=== PATIENT | female | born 1950 | race Caucasian/White ===

== ENCOUNTER 2020-04-07 15:26 | Emergency (ER) | payer MEDICARE, OTHER ==
[~2020-04-07] VITALS: Ht 147.3 cm; Wt 74.3 kg
[2020-04-07 15:35] VITALS: BP 201/82
[2020-04-07] MEDS ORDERED: METH4TAB PO (16:16)
[2020-04-07] MEDS ORDERED: DICL100G18 TP (16:16)
--- NOTE | 2020-04-07 16:16 | ED Lower Extremity ---
General Chief Complaint: Lower Extremity Stated Complaint: BI LATERAL KNEE PAIN Nursing Triage Note: Pt c/o chronic bilateral knee pain that has persisted for over eight years. Pt reports eight years ago, having a steroid shot and a knee brace that "cured" the pain. Pt reports calling Carolyn today and was told to come to ED. Pt reports pain is affecting ADL. Nursing Sepsis Screen: No Definite Risk Source: patient History of Present Illness Date Seen by Provider: Apr 07, 2020 Time Seen by Provider: 16:00 Initial Comments PT ARRIVES VIA POV FROM HOME C/O CHRONIC BILATERAL KNEE PAIN FOR MANY YEARS--GREATER THAN 8 YEARS FOR THE LAST WEEK, PAIN IN LEFT KNEE HAS BEEN WORSE STATES IT MAKES ME UNSTEADY ON MY FEET--HAS A WALKER AT HOME, BUT IS NOT USING IT "BECAUSE I'VE BEEN WALKING FINE" PER PT NO SWELLING NO INJURY NO FEVER STATES SHE TOOK 1/2 HYDROCODONE TODAY AND 2 ADVIL, OTHERWISE HAS NOT TAKEN ANYTHING ELSE FOR PAIN 8 YEARS AGO, SHE GOT A "CORTISONE SHOT" AND A "KNEE BRACE" 8 YEARS AGO THAT "CURED IT" STATES SHE HAS HAD TELEPHONE VISITS WITH CODER ARIELLA QUICK 2-3 DAYS AGO, YESTERDAY AND WAS TOLD TO TAKE OTC ARTHRITIS PILL STATES SHE CALLED TODAY AND SPOKE WITH CAROLYN, WHO TOLD HER TO COME HERE. PT HAS ANOTHER TELEPHONE APPOINTMENT THIS TUESDAY AT 0900 FOR THIS PROBLEM PCP: DR. FU Allergies and Home Medications Allergies Coded Allergies: No Known Drug Allergies (Unverified , 04/07/20) Home Medications Diclofenac Sodium 100 Gm Gel..gram., 100 GM TP TID Prescribed by: AARNO MACK on 04/07/20 161 Methylprednisolone 4 Mg Tab.ds.pk, 4 MG PO UD PER DOSE PACK INSTRUCTIONS Prescribed by: AARON MACK on 04/07/20 1616 Patient Home Medication List Home Medication List Reviewed: Yes Review of Systems Constitutional: no symptoms reported Musculoskeletal: see HPI Skin: no symptoms reported Psychiatric/Neurological: No Symptoms Reported Past Fnkqqln-Ilteyx-Cyuyas Hx Past Med/Social Hx: Reviewed and Corrections made Patient Social History Alcohol Use: Denies Use Recreational Drug Use: No Smoking Status: Never a Smoker 2nd Hand Smoke Exposure: No Recent Foreign Travel: No Contact w/Someone Who Travel: No Recent Infectious Disease Expo: No Recent Hopitalizations: No Past Medical History Surgeries: Yes Hysterectomy Respiratory: No 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" ) High Cholesterol, Hypertension, Palpitations 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 oz. kg; 34.00 BMI Method: General Appearance: WD/WN, no apparent distress Hips: bilateral hip non-tender Legs: bilateral leg non-tender Knees: right knee non-tender; left knee bone tenderness (INFERIOR ASPECT OF KNEE, BELOW PATELLA. NO SWELLING. NO GROSS LIGAMENT LAXITY. ) Ankles: bilateral ankle normal inspection Feet: bilateral foot normal inspection Neurologic/Tendon: normal sensation, normal motor functions, normal tendon functions Neurologic/Psychiatric: no motor/sensory deficits, alert, oriented x 3, other (HEAD TREMOR) Skin: normal color, warm/dry Procedures/Interventions Splinting and Joint Reduction : Driss wrap: Yes Progress/Results/Core Measures Results/Orders My Orders Orders - AARON MACK DO Driss Bandage (04/07/20 16:13) Vital Signs/I&O 04/07/20 15:35 Temp 36.8 Pulse 69 Resp 22 B/P (MAP) 201/82 (121) Pulse Ox 93 O2 Delivery Room Air Blood Pressure Mean: 121 Departure Impression Primary Impression: Chronic pain of left knee Disposition: HOME, SELF-CARE Condition: Stable Departure-Patient Inst. Referrals: MIKIE FU MD Patient Instructions: Chronic Knee Pain (DC) Add. Discharge Instructions: DRISS WRAP NEEDED FOR COMFORT ALTERNATE ICE AND HEAT TO AREA AT 20 MINUTE INTERVALS USE YOUR WALKER FOR STABILITY FOLLOW UP WITH DR. FU'S OFFICE ON TUESDAY SCHEDULED. All discharge instructions reviewed with patient and/or family. Voiced understanding. Scripts Diclofenac Sodium (Voltaren) 100 Gm Gel..gram. 100 GM TP TID, #1 TUBE Prov: AARON MACK DO 04/07/20 Methylprednisolone (Medrol) 4 Mg Tab.ds.pk 4 MG PO UD for 6 Days, #21 PKG PER DOSE PACK INSTRUCTIONS Prov: AARON MACK DO 04/07/20 AARON MACK DO Apr 07, 2020 16:16
--- OUTSIDE RECORDS SUMMARY | 2020-04-07 18:48 | XMS REPORT | Continuity of Care Document ---
Author Organization Unknown Address Unknown Phone Unavailable Allergies Active Description Code Type Severity Reaction Onset Reported/Identified Relationship to Patient Clinical Status Yes No Known Drug Allergies [id number] Drug Allergy Unknown N/A 04/07/2020 Medications There is no data. Problems There is no data. Procedures There is no data. Results There is no data. Encounters ACCT No. Visit Date/Time Discharge Status Pt. Type Provider Facility Loc./Unit Complaint [id number] 04/07/2020 15:29:00 020 16:26:00 DIS Emergency AARON MACK DO [facility] BI LATERAL KNEE PAIN
== END 2020-04-07 16:26 | disposition home or self-care (01) ==
LOC: EDUNIT# 15:26 → ER 15:29
DX: G89.29 Other chronic pain (principal); M25.562 Pain in left knee; M25.561 Pain in right knee; Z85.41 Personal history of malignant neoplasm of cervix uteri; Z79.1 Long term (current) use of non-steroidal anti-inflammatories (NSAID)
CPT/HCPCS: 99283

== ENCOUNTER → 2021-01-02 | Outpatient (CLI) | payer MEDICARE, OTHER ==
[~2021-01-02] MED LIST: DICL100G18 TP; METH4TAB PO
== END ==
LOC: RAD 10:34
PROVIDERS: ATTEND Physician Assistant
DX: Z12.31 Encounter for screening mammogram for malignant neoplasm of breast (principal)
CPT/HCPCS: 77063; 77067

== ENCOUNTER 2021-03-21 20:53 | Emergency (ER) | payer MEDICARE, OTHER ==
[~2021-03-21] VITALS: Ht 147 cm; Wt 77.0 kg
[2021-03-21] MEDS ORDERED: KETOROLAC 60 MG/2 ML VIAL IM ONE (21:15)
[2021-03-21] MEDS ORDERED: predniSONE 20 MG TAB PO ONE (21:15)
--- NOTE | 2021-03-21 21:18 | ED Lower Extremity ---
General Stated Complaint: R KNEE PAIN/SWOLLEN Source: patient Exam Limitations: no limitations History of Present Illness Date Seen by Provider: Mar 21, 2021 Time Seen by Provider: 21:16 Initial Comments Right knee pain. She is on meloxicam normally but has been out of it for a month. She took a half a hydrocodone today without relief. No fevers chills or injury to the right knee. She states that typically when this happens a course of steroids helps. Onset: last week Severity: moderate Pain/Injury Location: right knee Method of Injury: fell Modifying Factors: Worse With Movement Allergies and Home Medications Allergies Coded Allergies: No Known Drug Allergies (Unverified , 04/07/20) Home Medications Diclofenac Sodium 100 Gm Gel..gram., 100 GM TP TID Prescribed by: AARON MACK on 04/07/20 161 Methylprednisolone 4 Mg Tab.ds.pk, 4 MG PO UD PER DOSE PACK INSTRUCTIONS Prescribed by: AARON MACK on 04/07/20 1616 Patient Home Medication List Home Medication List Reviewed: Yes Review of Systems Constitutional: see HPI EENTM: see HPI Respiratory: no symptoms reported Cardiovascular: no symptoms reported Genitourinary: no symptoms reported Musculoskeletal: no symptoms reported Skin: no symptoms reported Psychiatric/Neurological: No Symptoms Reported Past Tvgetfx-Xzebbp-Gfjkag Hx Past Medical History Surgeries: Yes Hysterectomy Respiratory: No 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" ) High Cholesterol, Hypertension, Palpitations Neurological: 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 oz. kg; 34.00 BMI Method: General Appearance: WD/WN, no apparent distress Neck: non-tender, full range of motion Respiratory: no respiratory distress, no accessory muscle use Hips: bilateral hip non-tender, bilateral hip normal inspection, bilateral hip normal range of motion Legs: bilateral leg non-tender, bilateral leg normal inspection, bilateral leg normal range of motion Knees: right knee pain, right knee soft tissue tenderness, right knee other (No erythema or ecchymosis. No palpable effusion) Ankles: bilateral ankle non-tender, bilateral ankle normal inspection, bilateral ankle normal range of motion Feet: bilateral foot non-tender, bilateral foot normal inspection, bilateral foot no evidence of injury Neurologic/Psychiatric: alert, normal mood/affect, oriented x 3 Skin: normal color, warm/dry Progress/Results/Core Measures Results/Orders My Orders Orders - RUBEN FARIAS APRN Ketorolac Injection (Toradol Injection) (03/21/21 21:15) Prednisone Tablet (Deltasone Tablet) (03/21/21 21:15) Vital Signs/I&O 03/21/21 21:12 Temp 36.6 Pulse 67 Resp 18 B/P (MAP) 187/84 (118) Pulse Ox 94 O2 Delivery Room Air Departure Impression Primary Impression: Right knee pain Disposition: 01 HOME, SELF-CARE Condition: Stable Departure-Patient Inst. Decision time for Depature: 21:18 Referrals: NO,LOCAL PHYSICIAN (PCP) Primary Care Physician CAROLYN REIS (Family) Primary Care Physician Patient Instructions: Knee Pain Add. Discharge Instructions: 1. [facility] is open from 10 AM to 6 PM tomorrow. [facility] I sent your prescription to [facility] right across the street from the hospital. Scripts Methylprednisolone (Methylprednisolone Dose Pack) 4 Mg Tab.ds.pk 4 MG PO UD for 6 Days, #21 PKG PER DOSE PACK INSTRUCTIONS Prov: RUBEN FARIAS APRN 03/21/21 RUBEN FARIAS APRN Mar 21, 2021 21:18
[2021-03-21] MEDS ORDERED: METH4TAB10 PO (21:23)
[2021-03-21 21:33] VITALS: BP 187/84
== END 2021-03-21 21:33 | disposition home or self-care (01) ==
LOC: EDUNIT# 20:53 → ER 20:55
DX: M25.561 Pain in right knee (principal); I10 Essential (primary) hypertension; Z79.52 Long term (current) use of systemic steroids
CPT/HCPCS: 99284

== ENCOUNTER → 2021-04-09 | Outpatient (CLI) | payer MEDICARE, OTHER ==
[~2021-04-09] MED LIST changes: +METH4TAB10 PO
[2021-04-09 12:30] LABS: HEMATOCRIT 47 % (35-52); MEAN CORPUSCULAR HEMOGLOBIN 28 pg (25-34); MEAN CORPUSCULAR HGB CONC 32 g/dL (32-36); MEAN CORPUSCULAR VOLUME 87 fL (80-99); MEAN PLATELET VOLUME 8.8 fL (9.0-12.2); PLATELET COUNT 185 10^3/uL (130-400); WHITE BLOOD COUNT 6.4 10^3/uL (4.3-11.0)
[2021-04-09 12:38] LABS: ALBUMIN 4.1 GM/DL (3.2-4.5)
[2021-04-09 12:39] LABS: POTASSIUM 3.7 MMOL/L (3.6-5.0)
[2021-04-09 12:40] LABS: CALCIUM 10.1 MG/DL (8.5-10.1)
[2021-04-09 12:41] LABS: TOTAL PROTEIN 7.6 GM/DL (6.4-8.2)
[2021-04-09 12:43] LABS: BILIRUBIN,TOTAL 0.8 MG/DL (0.1-1.0)
[2021-04-09 12:45] LABS: CREATININE SERUM 0.75 MG/DL (0.60-1.30)
[2021-04-09 12:48] LABS: URIC ACID 6.1 MG/DL (2.6-7.2)
--- NOTE | 2021-04-09 13:19 | Diagnostic Imaging Report ---
INDICATION: Chronic bilateral knee pain. FINDINGS: This patient has very severe bilateral tricompartmental osteoarthritis of the knees while significant bilaterally is greater right than left. Lateral view showed no convincing evidence for joint effusion. There is meniscal calcifications bilaterally joint space narrowing, bulky osteophytes, subchondral sclerosis and cyst formation. 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
== END ==
LOC: RAD 12:05
PROVIDERS: ATTEND Physician Assistant
DX: M17.11 Unilateral primary osteoarthritis, right knee (principal); M17.12 Unilateral primary osteoarthritis, left knee; I10 Essential (primary) hypertension
CPT/HCPCS: 36415; 80053; 84550; 85027; 86060

== ENCOUNTER → 2022-01-22 | Outpatient (CLI) | payer MEDICARE, OTHER ==
[~2022-01-22] VITALS: Ht 149.9 cm; Wt 74.5 kg
[~2022-01-22] MED LIST changes: +LIDOCAINE 1% INJ 20 ML VIAL INJ ONE
--- NOTE | 2022-01-22 16:24 | Diagnostic Imaging Report ---
INDICATION: Right breast nodule. Patient presents for ultrasound-guided biopsy. PROCEDURE: Patient was brought to the sonographic suite and placed on table in the supine position. Ultrasound imaging of the right breast was performed to evaluate appropriate entry site. Right breast was prepped and draped in the usual sterile fashion. A small amount of 1% lidocaine was utilized for local anesthesia. The 3 mm circumscribed hypoechoic nodule at the 5:00 location of right breast was visualized. The 13-gauge hand-held vacuum assisted mammotome device was advanced in place just deep to the lesion centered within the biopsy chamber. Two core biopsies were obtained. There was complete removal of the lesion. A marker clip was then deployed. Hemostasis was obtained using manual compression. Patient tolerated the procedure well and left the department in stable condition. IMPRESSION: Successful ultrasound-guided hand-held mammotome biopsy of the 3 mm lesion at the 5:00 location of right breast. Pathology results are currently pending. Dictated by: Dictated on workstation # [id number]
--- NOTE | 2022-01-22 16:28 | Diagnostic Imaging Report ---
INDICATION: Left breast mass. Patient presents for ultrasound-guided biopsy. PROCEDURE: Patient was brought to the ultrasound suite and placed on table in the supine position. Ultrasound imaging of left breast was performed to evaluate appropriate entry site. Left breast was prepped and draped in the usual sterile fashion. A small amount of 1% lidocaine was utilized for local anesthesia. A total of three passes were made into the spiculated solid mass 5:00 location of left breast utilizing a 14-gauge achieve needle. A marker clip was then deployed. Hemostasis was obtained using manual compression. IMPRESSION: Successful ultrasound-guided core biopsy of the solid mass 5:00 location left breast. Pathology results are currently pending. Dictated on workstation # [id number]
--- NOTE | 2022-01-22 16:29 | Diagnostic Imaging Report ---
INDICATION: Enlarged left axillary lymph node. PROCEDURE: Patient was brought to the sonographic suite and placed on table in the supine position. Ultrasound imaging of the left axilla was performed to evaluate appropriate entry site. Left axilla was prepped and draped in the usual sterile fashion. A small amount of 1% lidocaine was utilized for local anesthesia. A total of three passes were made into an enlarged left axillary lymph node utilizing a 14-gauge achieve needle. Lymph node is primarily fatty replaced and has a thin mantle. Marker clip was then deployed. Hemostasis was obtained using manual compression. Patient tolerated the procedure well. IMPRESSION: Successful ultrasound-guided core biopsy of the dominant left axillary lymph node. Dictated on workstation # [id number]
== END ==
LOC: RAD 13:51
PROVIDERS: ATTEND Nurse Practitioner Family
DX: N63.23 Unspecified lump in the left breast, lower outer quadrant (principal); N63.13 Unspecified lump in the right breast, lower outer quadrant
CPT/HCPCS: 19083 ×2; 76942; 77066; A4648; G0279; 77062

== ENCOUNTER 2022-02-02 15:49 | Outpatient (RCR) | payer MEDICARE, OTHER ==
[~2022-02-02 15:49] MED LIST changes: -LIDOCAINE 1% INJ 20 ML VIAL INJ ONE
== END 2022-02-16 | disposition home or self-care (01) ==
LOC: ONC 15:49
PROVIDERS: ATTEND Internal Medicine Hematology & Oncology
DX: C50.912 Malignant neoplasm of unspecified site of left female breast (principal)
CPT/HCPCS: 99214

== ENCOUNTER 2022-03-03 05:29 | Outpatient (CLI) | payer MEDICARE, OTHER ==
[~2022-03-03] VITALS: Ht 148 cm; Wt 75.0 kg
[2022-03-05] MEDS ORDERED: CHOL20003 PO (11:24)
[2022-03-05] MEDS ORDERED: AMLO5TAB4 PO (11:24)
[2022-03-05] MEDS ORDERED: MELO10CA3 PO (11:24)
[2022-03-05] MEDS ORDERED: ASCO250T55 PO (11:24)
[2022-03-05] MEDS ORDERED: VITA1CAP PO (11:24)
[2022-03-05] MEDS ORDERED: PRAV40TA2 PO (11:24)
[2022-03-05] MEDS ORDERED: HYDR12.56 PO (11:24)
[2022-03-05] MEDS ORDERED: CARV3.12 PO (11:24)
[2022-03-05] MEDS ORDERED: DONE10TA41 PO (11:24)
[2022-03-05] MEDS ORDERED: PRIM50TA33 PO (11:24)
[2022-03-05] MEDS ORDERED: ALPR0.25 PO (11:24)
[2022-03-05] MEDS ORDERED: OMEG-82 PO (11:24)
== END 2022-03-05 12:34 | disposition home or self-care (01) ==
LOC: PREOP 05:29
PROVIDERS: ATTEND Surgery
DX: Z01.818 Encounter for other preprocedural examination (principal)

== ENCOUNTER 2022-03-10 06:13 | Day surgery (SDC) | payer MEDICARE, OTHER ==
[2022-03-10] VITALS (10 sets, daily range): BP systolic 153–197; BP diastolic 71–95
[~2022-03-10] VITALS: Ht 148 cm; Wt 75.0 kg
[~2022-03-10 06:13] MED LIST changes: +ALPR0.25 PO; +AMLO5TAB4 PO; +ASCO250T55 PO; +CARV3.12 PO; +CHOL20003 PO; +DONE10TA41 PO; +HYDR12.56 PO; +MELO10CA3 PO; +OMEG-82 PO; +PRAV40TA2 PO; +PRIM50TA33 PO; +VITA1CAP PO
[2022-03-10] MEDS ORDERED: ceFAZolin 2 GM IV Premixed 50 ML IV ONE (06:15)
[2022-03-10] MEDS: LACTATED RINGERS 1,000 ML IV PRN ×2 (06:25→12:00)
[2022-03-10] MEDS ORDERED: LIDOCAINE 1% INJ 20 ML VIAL INJ ONE (08:15)
--- NOTE | 2022-03-10 08:16 | Progress Note-Pre Operative ---
Pre-Operative Progress Note H&P Reviewed The H&P was reviewed, patient examined and no changes noted. Time Seen by Provider: 08:10 Date H&P Reviewed: Mar 10, 2022 Time H&P Reviewed: 08:10 Pre-Operative Diagnosis: left breast cancer, site marked MARCK SALINAS DO Mar 10, 2022 08:16
--- NOTE | 2022-03-10 10:13 | Diagnostic Imaging Report ---
INDICATION: Left breast carcinoma. Patient presents for ultrasound-guided hookwire localization. DETAILS OF THE PROCEDURE: The patient was brought to the ultrasound room and placed on the bed in the supine position. Ultrasound imaging of the left breast was performed to evaluate for an appropriate entry site. The left breast was then prepped and draped in the usual sterile fashion. A small amount of 1% lidocaine was utilized for local anesthesia. A localization needle was advanced through the solid hypoechoic mass at the 5 o'clock location in the left breast 5 cm from the nipple. The hookwire was then deployed and the needle was removed. The hookwire was affixed to the patient's skin. The patient tolerated the procedure well and was sent for a post procedure mammogram in satisfactory condition. IMPRESSION: Successful ultrasound-guided hookwire localization of the solid mass in the left breast at the 5 o'clock location. Dictated by: Dictated on workstation # [id number]
[2022-03-10] MEDS ORDERED: LIDOCAINE/EPI 2% 1:200,00 (XYLOCAINE) 20 ML VIAL ONE (10:41)
[2022-03-10] MEDS ORDERED: METHYLENE BLUE 0.5% (PROVAYBLUE) 50 mg/10 ml vial IV ONE (10:41)
--- NOTE | 2022-03-10 11:02 | Diagnostic Imaging Report ---
INDICATION: Left breast carcinoma. FINDINGS: Unilateral left 2D CC and ML mammography was performed after the patient underwent ultrasound guided hookwire localization. Images demonstrate the hookwire entering from a lateral approach and extending through the irregular mass in the lower outer left breast. IMPRESSION: Localization of the large irregular mass in the lower outer left breast, as described. Dictated by: Dictated on workstation # [id number]
--- NOTE | 2022-03-10 11:23 | Diagnostic Imaging Report ---
INDICATION: Left breast carcinoma. A total of 1.05 mCi of filtered technetium-99m sulfur colloid was injected in four separate aliquots in a periareolar distribution of the left breast. Imaging was performed for 2 hours. The images demonstrate the activity at the injection site in a periareolar region. There was migration of activity into the axilla consistent with sentinel nodes. This was marked on the patient's skin. IMPRESSION: Left breast lymphoscintigraphy, as described. Dictated by: Dictated on workstation # [id number]
[2022-03-10] MEDS ORDERED: LIDOCAINE PF 2% 5 ML (XYLOCAINE) VIAL ONE (11:25)
[2022-03-10] MEDS ORDERED: proPOfol 200 MG/20 ML (DIPRIVAN) VIAL IV ONE (11:25)
[2022-03-10] MEDS ORDERED: ONDANSETRON 4 MG/2 ML (SDV) Z0FRAN ONE (11:25)
[2022-03-10] MEDS ORDERED: fentaNYL INJ 100 MCG/2 ML AMP ONE (11:25)
--- NOTE | 2022-03-10 12:25 | Progress Note-Post Operative ---
Post-Operative Progess Note Surgeon (s)/Auto Bumper Straightener (s) Surgeon MARCK SALINAS DO Auto Bumper Straightener: Yang Pre-Operative Diagnosis left breast cancer, site marked Post-Operative Diagnosis same pending path Procedure & Operative Findings Date of Procedure 03/10/22 Procedure Performed/Findings 1) Left partial mastectomy 2) SLN bx 3) injection methylene blue Anesthesia Type LMA Estimated Blood Loss Estimated blood loss (mL): less than 30ml Specimens/Packing Specimens Removed left partial mastectomy SLN x 3 palpable node MARCK SALINAS DO Mar 10, 2022 12:25
[2022-03-10] MEDS ORDERED: TRM50T PO (12:27)
--- NOTE | 2022-03-10 12:29 | Discharge Inst-Surgical ---
Discharge Inst-Surgical Depart Medication/Instructions New, Converted or Re-Newed RX: Transmitted to Pharmacy Patient Instructions Follow up Appt: Make appointment for 1 week. [phone] Instructions: No lifting greater than 20 pounds. No strenuous activity. May shower in 24 hours, no tub bath or soaking. Use incentive spirometer at home as directed. No Smoking Skin/Wound Care: May remove bandages in am. You need to leave the Dermabond on incision it will fall off on it's own. Symptoms to Report: Appetite Changes, Extremity Discoloration, Numbness/Tingling, Swelling Increased, Bleeding Excessive, Eyesight Changes, Pain Increased, Urine Color Change, Constipation(Persistent), Fever over 101 degree F, Pain/Pressure in chest, Urinating Difficulty, Cough Up/Vomit Blood, Heart Beat Irreg/Pounding, Pain/Pressure in jaw, Cramps in feet or legs, Lightheadedness, Pain/Pressure in shoulder, Diarrhea(Persistent), Memory Changes Suddenly, Questions/Concerns, Weight gain consecutive days, Dizziness/Fainting, Nausea/Vomiting, Shortness of Breath, Weight gain over 2 pounds If questions or concerns contact your physician Or seek help at emergency department. Activity Activity as Tolerated: Yes Activity Instructions: Avoid Stress to Incision Driving Instructions: No Driving/Refer to Dr. Love Discharge Diet: No Restrictions Diet After 24 Hours: Clear Liquid if Nauseous If Any Problems/Questions/Issu: Contact Your Physician, Go to Emergency Room Skin/Wound Care Infection Signs and Symptoms: Increased Redness, Foul Odor of Wound, Increased Drainage, Skin Itchy or Has a Rash, Increased Swelling, Temperature Above 101 F Wound Care Comment: wear sports bra/tight fitting bra for next week, 24 hours per day except to shower Bathing Instructions: Shower Stitches/Luiz/Dermabond Dis: Dermabond Ice Pack: Ice On and Off Site MARCK SALINAS DO Mar 10, 2022 12:29
[2022-03-10] MEDS ORDERED: SEVOFLURANE (ULTANE) 15 ML INHAL SOLN ONE (12:30)
--- NOTE | 2022-03-10 12:44 | Anesthesia-General Post-Op ---
General Patient Condition Mental Status/LOC: Same as Preop Cardiovascular: Satisfactory Nausea/Vomiting: Absent Respiratory: Satisfactory Pain: Controlled Complications: Absent Post Op Complications Complications None Follow Up Care/Instructions Patient Instructions None needed. Anesthesia/Patient Condition Patient Condition Patient is doing well, no complaints, stable vital signs, no apparent adverse anesthesia problems. No complications reported per nursing. PETRA EL CRNA Mar 10, 2022 12:44
[2022-03-10] MEDS ORDERED: fentaNYL INJ 100 MCG/2 ML AMP IVP ONE (12:45)
[2022-03-10] MEDS ORDERED: ONDANSETRON 4 MG/2 ML (SDV) Z0FRAN IVP PRN (12:45)
[2022-03-10] MEDS ORDERED: morphine INJ 10 MG/ML 1ML (SYR OR VIAL) IVP ONE (12:45)
--- NOTE | 2022-03-10 12:51 | Diagnostic Imaging Report ---
INDICATION: Left breast carcinoma, status post lumpectomy. FINDINGS: A specimen radiograph was submitted. The mass as well as the marker clip and hookwire are located within the specimen. IMPRESSION: Specimen radiograph, as described. Dictated by: Dictated on workstation # [id number]
--- NOTE | 2022-03-11 06:26 | OPERATIVE REPORT ---
DATE OF SERVICE: 03/10/2022 PREOPERATIVE DIAGNOSIS: Left breast cancer. POSTOPERATIVE DIAGNOSIS: Left breast cancer, pending pathology. PROCEDURES: 1. Left partial mastectomy. 2. Zoar lymph node biopsy. 3. Injection of methylene blue. SURGEON: Rishi Shah DO HOGSHEAD HEAD MATCHER: Tai Soria DO. ANESTHESIA: LMA. BLOOD LOSS: Less than 20 mL. FLUIDS: Per anesthesia. POSTOPERATIVE CONDITION: Stable. INDICATION FOR PROCEDURE: The patient is a 71-year-old female, who had a breast mass, it was biopsied and came back as invasive ductal carcinoma. She needed a mastectomy with sentinel node. FINDINGS: The patient had a left breast mass. Her left breast cancer localized with needle localization, sentinel lymph node performed and methylene blue injected. The specimen was x-rayed and the mass was in the specimen, 3 blue lymph node was obtained and one palpable node. PROCEDURE NOTE: After informed consent was obtained, the patient was first sent to radiology where she had injection of radioactive dye for lymphoscintigraphy. She also had an ultrasound performed to localize the mass because she had a large area of inflammation from the biopsy. She was then brought to the operating room, timeout was performed. Site had been marked preoperatively, everyone agreed on including the patient. Then, used a methylene blue to inject around the mass just below the areola at about 5 o'clock and then on the areolar at 3 and 6 o'clock, then massaged this area for 5 minutes. The patient was then sterilely prepped and draped in normal fashion. Local lidocaine was used to infiltrate along the radial line right around the 5 o'clock position, almost at the 6 o'clock position, infiltrated the skin with local, then made an incision with a 15 blade, carried down through skin and subcutaneous tissue, deepened down to subcutaneous tissue with Bovie electrocautery, then created flaps in the medial and lateral direction, able to bring the guidewire into the incision and then started dissecting around this mass with Bovie electrocautery, going around it, getting good margins, removed it en bloc with a short suture at the 12 o'clock position, long suture laterally, the 3 o'clock position and then 2 sutures on the base of this incision. Copiously irrigated with normal saline. Hemostasis was obtained and then closed the incision closing the subcutaneous and subcuticular tissue with 3-0 Vicryl 5 interrupted sutures. Area was cleaned and dried, held off and then did use a secondary set clean and sterile to start doing the sentinel lymph node biopsy. We had done the Jaspreet counter, the Neoprobe on the skin prior to surgery was 140, it was up in the left axilla, made incision after infiltrating the skin with local with incision made #15 blade, carried down through skin and subcutaneous tissue, then deepened down to subcutaneous tissue with Bovie electrocautery. Then, helping to direct the dissection with the Neoprobe, we found the first lymph node. It was at 262 count in vivo and 205 ex vivo, this was removed and sent to pathology. Then, using Neoprobe found another one, it was 277 in vivo and 429 ex vivo, continued found a third one, it was 164 in vivo and 327 ex vivo and then found a fourth what felt like a palpable node could have just been some fat, it was neither blue nor hot; however, this was removed. Copiously irrigated with normal saline and then closed this incision with 4-0 undyed Monocryl, 3 interrupted subcuticular stitches. Area was cleaned and dried, dressings placed. She had a tight dressing placed across the breast to try and prevent seroma formation. Sponge, instrument and needle count was correct at the end of the case. She was transferred to recovery room in stable condition. Dr. Soria assisted on this helping to hold anatomy, identify anatomy and close incisions. Job ID: [id number] DocumentID: [id number] Dictated Date: 03/10/2022 18:21:40 Wheel Alignment Technician Date: 03/11/2022 04:56:33 Dictated By: DO BAIRON ORTEGA
== END 2022-03-10 14:23 | disposition home or self-care (01) ==
LOC: CARD 06:13
PROVIDERS: ATTEND Surgery
DX: C50.012 Malignant neoplasm of nipple and areola, left female breast (principal)
CPT/HCPCS: 19285; 19301; 38525; 76098; 77065; 78195; 87081; A4648; A9541; G0279

== ENCOUNTER 2022-03-23 13:21 | Outpatient (RCR) | payer MEDICARE, OTHER ==
[~2022-03-23 13:21] MED LIST changes: +TRM50T PO
== END 2022-04-09 09:57 | disposition home or self-care (01) ==
LOC: ONC 13:21
PROVIDERS: ATTEND Internal Medicine Hematology & Oncology
DX: C50.912 Malignant neoplasm of unspecified site of left female breast (principal); I10 Essential (primary) hypertension; E78.5 Hyperlipidemia, unspecified; E66.9 Obesity, unspecified; E11.9 Type 2 diabetes mellitus without complications; F41.9 Anxiety disorder, unspecified
CPT/HCPCS: 99213

== ENCOUNTER 2022-05-04 15:42 | Outpatient (RCR) | payer MEDICARE, OTHER ==
[~2022-05-04] VITALS: Ht 148.6 cm; Wt 75.3 kg
[2022-05-05] MEDS ORDERED: NS IV SCH (09:45)
[2022-05-05] MEDS ORDERED: CYCLOPHOSPHAMIDE IV SCH (09:45)
[2022-05-05] MEDS ORDERED: PALONOSETRON HCL 0.25 MG, dexAMETHasone INJECTION 10 MG in NS (IVPB) 50 ML IV SCH (09:45)
[2022-05-05] MEDS ORDERED: HEParin (CENTRAL IV FLUSH) 500 UNIT/5 ML SYR IV PRN (09:45)
[2022-05-05] MEDS ORDERED: NS IV 1000 ML (CANCER CTR) IV SCH (09:45)
[2022-05-05] MEDS ORDERED: METHOTREXATE IJ SCH (10:00)
== END 2022-05-19 | disposition home or self-care (01) ==
LOC: ONC 15:42
PROVIDERS: ATTEND Internal Medicine Hematology & Oncology
DX: C50.912 Malignant neoplasm of unspecified site of left female breast (principal); I10 Essential (primary) hypertension; E78.5 Hyperlipidemia, unspecified; E11.9 Type 2 diabetes mellitus without complications; E66.9 Obesity, unspecified
CPT/HCPCS: 99213

== ENCOUNTER 2022-05-17 05:30 | Outpatient (CLI) | payer MEDICARE, OTHER ==
[~2022-05-17] VITALS: Ht 149.9 cm; Wt 76.7 kg
== END 2022-05-18 12:37 ==
LOC: PREOP 05:30
PROVIDERS: ATTEND Surgery
DX: Z01.818 Encounter for other preprocedural examination (principal); Z45.2 Encounter for adjustment and management of vascular access device; C50.911 Malignant neoplasm of unspecified site of right female breast

== ENCOUNTER 2022-05-19 11:44 | Day surgery (SDC) | payer MEDICARE, OTHER ==
[2022-05-19] VITALS (7 sets, daily range): BP systolic 127–186; BP diastolic 71–85
[~2022-05-19] VITALS: Ht 150 cm; Wt 76.7 kg
--- NOTE | 2022-05-19 11:51 | Progress Note-Pre Operative ---
Pre-Operative Progress Note Date of Available H&P: May 13, 2022 Date H&P Reviewed: May 19, 2022 Time H&P Reviewed: 11:50 History & Physical: H&P Reviewed, Patient Examed, No changes noted Pre-Operative Diagnosis: Breast CA, Venous insufficiency MARCK SALINAS DO May 19, 2022 11:51
[2022-05-19] MEDS ORDERED: 0.9% SODIUM CHLORIDE PF INJ 20 ML VIAL ONE (12:58)
[2022-05-19] MEDS ORDERED: HEParin (CENTRAL IV FLUSH) 500 UNIT/5 ML SYR ONE (12:58)
[2022-05-19] MEDS ORDERED: LIDOCAINE/EPI 2% 1:200,00 (XYLOCAINE) 20 ML VIAL ONE (13:01)
[2022-05-19] MEDS ORDERED: ceFAZolin INJECTION 2,000 MG in NS (IVPB) 50 ML IV SCH (13:30)
[2022-05-19] MEDS ORDERED: LACTATED RINGERS 1,000 ML IV PRN (13:30)
[2022-05-19] MEDS ORDERED: proPOfol 200 MG/20 ML (DIPRIVAN) VIAL IV ONE (13:34)
[2022-05-19] MEDS ORDERED: MIDAZOLAM 2 MG/2 ML (VERSED) VIAL ONE (13:34)
[2022-05-19] MEDS ORDERED: ceFAZolin 2 GM IV Premixed 50 ML ONE (13:35)
[2022-05-19] MEDS ORDERED: [UNRECOGNIZED DRUG - OTHER] INJ ONE (14:16)
[2022-05-19] MEDS ORDERED: SODIUM CHLORIDE 0.9% INJ ONE (14:16)
[2022-05-19] MEDS ORDERED: HEParin (CENTRAL IV FLUSH) 500 UNIT/5 ML SYR IV ONE (14:18)
--- NOTE | 2022-05-19 14:22 | Progress Note-Post Operative ---
Post-Operative Progess Note Surgeon (s)/Uranium Processing Supervisor (s) Surgeon MARCK SALINAS DO Uranium Processing Supervisor: KIARA Pacheco Pre-Operative Diagnosis Breast CA, Venous insufficiency Post-Operative Diagnosis same Procedure & Operative Findings Date of Procedure 05/19/22 Procedure Performed/Findings PROCEDURE: Ana Cristina-Cath Insertion The patient was taken to the operating suite, was prepped and draped in the sterile fashion. A surgical pause was performed. Local anesthetic was infiltrated at the clavicle and along the tract to the right anterior chest, where more local was placed so the pocket could be created. Using an 18 gauge finder needle with negative inspiration the right subclavian vein was accessed on the first attempt and dark nonpulsatile blood was withdrawn. The wire was inserted and fluoroscopy assured proper placement. The needle was removed. The regular wire was inserted and fluoroscopy assured proper placement. The wire was then secured. A #11 blade scalpel was used to make an incision over the right chest and along guidewire. Cautery was used to dissect down to the pectoral fascia. A pocket was created with blunt dissection. The dilator sheath was then advanced over the wire under fluoroscopy and the dilator and wire were removed. The Gro[place]ong catheter was inserted through the sheath and the sheath was then removed. The Groshong wire was removed. The catheter was then tunneled to the right chest pocket. Fluoroscopy was used to cut to length and this was then attached to the port which was then placed within the pocket. The port was then accessed without difficulty. It was then flushed with saline and then heparin. The subcutaneous tissues were then reapproximated using 3-0 Vicryl. Finally the skin was closed with 4-0 undyed monocryl, 3 interrupted sutures. The areas were then washed and dried. Skin Affix was placed over incision. The insertion point of the neck Skin Affix was placed over the incision. The patient tolerated the procedure well without complication and was taken to recovery room in stable condition. Anesthesia Type MAC Estimated Blood Loss Estimated blood loss (mL): scant Specimens/Packing Specimens Removed none MARCK SALINAS DO May 19, 2022 14:22
--- NOTE | 2022-05-19 14:23 | Discharge Inst-Surgical ---
Discharge Inst-Surgical Depart Medication/Instructions New, Converted or Re-Newed RX: Transmitted to Pharmacy Patient Instructions Follow up Appt: Make appointment for 1 week. [phone] Instructions: No lifting greater than 20 pounds. No strenuous activity. May shower in 24 hours, no tub bath or soaking. Use incentive spirometer at home as directed. No Smoking Skin/Wound Care: May remove bandages in am. You need to leave the Dermabond on incision it will fall off on it's own. Symptoms to Report: Appetite Changes, Extremity Discoloration, Numbness/Tingling, Swelling Increased, Bleeding Excessive, Eyesight Changes, Pain Increased, Urine Color Change, Constipation(Persistent), Fever over 101 degree F, Pain/Pressure in chest, Urinating Difficulty, Cough Up/Vomit Blood, Heart Beat Irreg/Pounding, Pain/Pressure in jaw, Cramps in feet or legs, Lightheadedness, Pain/Pressure in shoulder, Diarrhea(Persistent), Memory Changes Suddenly, Questions/Concerns, Weight gain consecutive days, Dizziness/Fainting, Nausea/Vomiting, Shortness of Breath, Weight gain over 2 pounds If questions or concerns contact your physician Or seek help at emergency department. Activity Activity as Tolerated: Yes Activity Instructions: Avoid Stress to Incision Driving Instructions: No Driving/Refer to Dr. Love Discharge Diet: No Restrictions Diet After 24 Hours: Clear Liquid if Nauseous If Any Problems/Questions/Issu: Contact Your Physician, Go to Emergency Room Skin/Wound Care Infection Signs and Symptoms: Increased Redness, Foul Odor of Wound, Increased Drainage, Skin Itchy or Has a Rash, Increased Swelling, Temperature Above 101 F Bathing Instructions: Shower Stitches/[place]/Dermabond Dis: MARCK Treviño DO May 19, 2022 14:23
[2022-05-19] MEDS ORDERED: LIDOCAINE/EPI 2% 1:200,00 (XYLOCAINE) 10 ML VIAL INJ ONE (14:30)
--- NOTE | 2022-05-19 14:37 | Diagnostic Imaging Report ---
INDICATION: Port-A-Cath placement. Fluoroscopic guidance. COMPARISON: None. TOTAL FLUOROSCOPY TIME: 2.8 seconds. TOTAL NUMBER OF FLUOROSCOPIC IMAGES SAVED: 1. FINDINGS: Fluoroscopic guidance was provided during Port-A-Cath placement. Image provided shows right subclavian venous approach. Central tip of the catheter appears to terminate in the right atrium. Evaluation for pneumothorax is suboptimal given fluoroscopic modality. Please note, interpreting radiologist was not present during the procedure. IMPRESSION: 1. Fluoroscopic guidance provided during Port-A-Cath placement. Dictated by: Dictated on workstation # [id number]
[2022-05-19] MEDS ORDERED: morphine INJ 10 MG/ML 1ML (SYR OR VIAL) IVP ONE (14:45)
[2022-05-19] MEDS ORDERED: ONDANSETRON 4 MG/2 ML (SDV) Z0FRAN IVP PRN (14:45)
--- NOTE | 2022-05-20 12:09 | Anesthesia-General Post-Op ---
MAC Patient Condition Mental Status/LOC: Same as Preop Cardiovascular: Satisfactory Nausea/Vomiting: Absent Respiratory: Satisfactory Pain: Controlled Complications: Absent Post Op Complications Complications None Follow Up Care/Instructions Patient Instructions None needed. Anesthesiology Discharge Order Discharge Order Patient is doing well, no complaints, stable vital signs, no apparent adverse anesthesia problems. No complications reported per nursing. OSITO YE CRNA May 20, 2022 12:09
== END 2022-05-19 15:35 | disposition home or self-care (01) ==
LOC: SDC 11:44
PROVIDERS: ATTEND Surgery
DX: C50.912 Malignant neoplasm of unspecified site of left female breast (principal); I87.2 Venous insufficiency (chronic) (peripheral); E66.9 Obesity, unspecified; Z68.34 Body mass index [BMI] 34.0-34.9, adult
CPT/HCPCS: 36561; 76000; 87081; C1788

== ENCOUNTER 2022-06-02 10:43 | Outpatient (RCR) | payer MEDICARE, OTHER ==
[~2022-06-02 10:43] MED LIST changes: +CYCLOPHOSPHAMIDE IV SCH; +HEParin (CENTRAL IV FLUSH) 500 UNIT/5 ML SYR IV PRN; +METHOTREXATE IJ SCH; +NS IV 1000 ML (CANCER CTR) IV SCH; +NS IV SCH; +PALONOSETRON HCL 0.25 MG, dexAMETHasone INJECTION 10 MG in NS (IVPB) 50 ML IV SCH
[2022-06-02 11:20] LABS: BASOPHILS # (AUTO) 0.1 10^3/uL (0.0-0.1); BASOPHILS % (AUTO) 1 % (0-10); EOSINOPHILS # (AUTO) 0.3 10^3/uL (0.0-0.3); EOSINOPHILS % (AUTO) 4 % (0-10); HEMATOCRIT 41 % (35-52); HEMOGLOBIN 13.3 g/dL (11.5-16.0); LYMPHOCYTES # (AUTO) 1.8 10^3/uL (1.0-4.0); LYMPHOCYTES % (AUTO) 24 % (12-44); MEAN CORPUSCULAR HEMOGLOBIN 28 pg (25-34); MEAN CORPUSCULAR HGB CONC 32 g/dL (32-36); MEAN CORPUSCULAR VOLUME 86 fL (80-99); MEAN PLATELET VOLUME 8.9 fL (9.0-12.2); MONOCYTES # (AUTO) 0.8 10^3/uL (0.0-1.0); MONOCYTES % (AUTO) 10 % (0-12); NEUTROPHILS # (AUTO) 4.6 10^3/uL (1.8-7.8); NEUTROPHILS % (AUTO) 61 % (42-75); PLATELET COUNT 219 10^3/uL (130-400); WHITE BLOOD COUNT 7.5 10^3/uL (4.3-11.0)
[2022-06-02 11:43] LABS: ALBUMIN 3.8 GM/DL (3.2-4.5); BILIRUBIN,TOTAL 0.8 MG/DL (0.1-1.0); CALCIUM 9.6 MG/DL (8.5-10.1); CREATININE SERUM 0.79 MG/DL (0.60-1.30); POTASSIUM 3.7 MMOL/L (3.6-5.0); TOTAL PROTEIN 6.8 GM/DL (6.4-8.2)
== END 2022-06-15 15:55 | disposition home or self-care (01) ==
LOC: ONC 10:43
PROVIDERS: ATTEND Internal Medicine Hematology & Oncology
DX: Z51.11 Encounter for antineoplastic chemotherapy (principal); Z45.2 Encounter for adjustment and management of vascular access device; C50.912 Malignant neoplasm of unspecified site of left female breast; I10 Essential (primary) hypertension; E78.5 Hyperlipidemia, unspecified; E11.9 Type 2 diabetes mellitus without complications; E66.9 Obesity, unspecified
CPT/HCPCS: 36591; 80053; 85025; 96375; 96411; 96413

== ENCOUNTER 2022-07-14 10:50 | Outpatient (RCR) | payer MEDICARE, OTHER ==
[2022-06-23 10:57] LABS: BASOPHILS # (AUTO) 0.1 10^3/uL (0.0-0.1); BASOPHILS % (AUTO) 2 % (0-10); EOSINOPHILS # (AUTO) 0.3 10^3/uL (0.0-0.3); EOSINOPHILS % (AUTO) 4 % (0-10); HEMATOCRIT 41 % (35-52); HEMOGLOBIN 13.4 g/dL (11.5-16.0); LYMPHOCYTES # (AUTO) 1.6 10^3/uL (1.0-4.0); LYMPHOCYTES % (AUTO) 22 % (12-44); MEAN CORPUSCULAR HEMOGLOBIN 29 pg (25-34); MEAN CORPUSCULAR HGB CONC 33 g/dL (32-36); MEAN CORPUSCULAR VOLUME 87 fL (80-99); MEAN PLATELET VOLUME 8.5 fL (9.0-12.2); MONOCYTES # (AUTO) 0.9 10^3/uL (0.0-1.0); MONOCYTES % (AUTO) 12 % (0-12); NEUTROPHILS # (AUTO) 4.1 10^3/uL (1.8-7.8); NEUTROPHILS % (AUTO) 56 % (42-75); PLATELET COUNT 218 10^3/uL (130-400); WHITE BLOOD COUNT 7.2 10^3/uL (4.3-11.0)
[2022-06-23 11:19] LABS: BILIRUBIN,TOTAL 0.6 MG/DL (0.1-1.0); CALCIUM 9.9 MG/DL (8.5-10.1); CREATININE SERUM 0.85 MG/DL (0.60-1.30); POTASSIUM 3.7 MMOL/L (3.6-5.0); TOTAL PROTEIN 7.1 GM/DL (6.4-8.2)
[2022-07-01 14:02] LABS: BASOPHILS % (AUTO) 1 % (0-10); EOSINOPHILS # (AUTO) 0.2 10^3/uL (0.0-0.3); EOSINOPHILS % (AUTO) 3 % (0-10); HEMATOCRIT 41 % (35-52); HEMOGLOBIN 13.1 g/dL (11.5-16.0); LYMPHOCYTES # (AUTO) 0.8 10^3/uL (1.0-4.0); LYMPHOCYTES % (AUTO) 14 % (12-44); MEAN CORPUSCULAR HEMOGLOBIN 28 pg (25-34); MEAN CORPUSCULAR HGB CONC 32 g/dL (32-36); MEAN CORPUSCULAR VOLUME 86 fL (80-99); MEAN PLATELET VOLUME 8.8 fL (9.0-12.2); MONOCYTES # (AUTO) 0.2 10^3/uL (0.0-1.0); MONOCYTES % (AUTO) 4 % (0-12); NEUTROPHILS # (AUTO) 4.3 10^3/uL (1.8-7.8); NEUTROPHILS % (AUTO) 78 % (42-75); PLATELET COUNT 176 10^3/uL (130-400); WHITE BLOOD COUNT 5.5 10^3/uL (4.3-11.0)
[2022-07-08 13:43] LABS: BASOPHILS % (AUTO) 1 % (0-10); EOSINOPHILS # (AUTO) 0.3 10^3/uL (0.0-0.3); EOSINOPHILS % (AUTO) 13 % (0-10); HEMATOCRIT 39 % (35-52); HEMOGLOBIN 12.7 g/dL (11.5-16.0); LYMPHOCYTES # (AUTO) 0.7 10^3/uL (1.0-4.0); LYMPHOCYTES % (AUTO) 32 % (12-44); MEAN CORPUSCULAR HEMOGLOBIN 28 pg (25-34); MEAN CORPUSCULAR HGB CONC 32 g/dL (32-36); MEAN CORPUSCULAR VOLUME 87 fL (80-99); MEAN PLATELET VOLUME 8.7 fL (9.0-12.2); MONOCYTES # (AUTO) 0.4 10^3/uL (0.0-1.0); MONOCYTES % (AUTO) 18 % (0-12); NEUTROPHILS # (AUTO) 0.8 10^3/uL (1.8-7.8); NEUTROPHILS % (AUTO) 36 % (42-75); PLATELET COUNT 174 10^3/uL (130-400); WHITE BLOOD COUNT 2.1 10^3/uL (4.3-11.0)
[~2022-07-14 10:50] MED LIST changes: +NS IV 500 ML 500 ML ONE
[2022-07-14 11:34] LABS: BASOPHILS # (AUTO) 0.1 10^3/uL (0.0-0.1); BASOPHILS % (AUTO) 1 % (0-10); EOSINOPHILS # (AUTO) 0.3 10^3/uL (0.0-0.3); EOSINOPHILS % (AUTO) 5 % (0-10); HEMATOCRIT 42 % (35-52); HEMOGLOBIN 13.5 g/dL (11.5-16.0); LYMPHOCYTES # (AUTO) 1.3 10^3/uL (1.0-4.0); LYMPHOCYTES % (AUTO) 20 % (12-44); MEAN CORPUSCULAR HEMOGLOBIN 28 pg (25-34); MEAN CORPUSCULAR HGB CONC 33 g/dL (32-36); MEAN CORPUSCULAR VOLUME 87 fL (80-99); MEAN PLATELET VOLUME 8.7 fL (9.0-12.2); MONOCYTES # (AUTO) 0.9 10^3/uL (0.0-1.0); MONOCYTES % (AUTO) 14 % (0-12); NEUTROPHILS # (AUTO) 3.6 10^3/uL (1.8-7.8); NEUTROPHILS % (AUTO) 57 % (42-75); PLATELET COUNT 229 10^3/uL (130-400); WHITE BLOOD COUNT 6.3 10^3/uL (4.3-11.0)
[2022-07-14 11:55] LABS: ALBUMIN 3.9 GM/DL (3.2-4.5); BILIRUBIN,TOTAL 0.5 MG/DL (0.1-1.0); CALCIUM 10.3 MG/DL (8.5-10.1); CREATININE SERUM 0.83 MG/DL (0.60-1.30); POTASSIUM 3.7 MMOL/L (3.6-5.0); TOTAL PROTEIN 7.3 GM/DL (6.4-8.2)
[2022-07-14] MEDS ORDERED: NS IV 500 ML 500 ML ONE (12:02)
== END 2022-07-19 | disposition home or self-care (01) ==
LOC: ONC 10:50
PROVIDERS: ATTEND Internal Medicine Hematology & Oncology
DX: Z51.11 Encounter for antineoplastic chemotherapy (principal); Z45.2 Encounter for adjustment and management of vascular access device; C50.912 Malignant neoplasm of unspecified site of left female breast; I10 Essential (primary) hypertension; E78.5 Hyperlipidemia, unspecified; E11.9 Type 2 diabetes mellitus without complications; E66.9 Obesity, unspecified
CPT/HCPCS: 80053; 85025; 96375; 96411; 96413; G0463; 36415; 36591

== ENCOUNTER → 2022-08-18 | Outpatient (RCR) | payer MEDICARE, OTHER ==
[2022-07-28 12:19] LABS: BASOPHILS % (AUTO) 2 % (0-10); EOSINOPHILS # (AUTO) 0.2 10^3/uL (0.0-0.3); EOSINOPHILS % (AUTO) 10 % (0-10); HEMATOCRIT 40 % (35-52); HEMOGLOBIN 13.1 g/dL (11.5-16.0); LYMPHOCYTES # (AUTO) 0.8 10^3/uL (1.0-4.0); LYMPHOCYTES % (AUTO) 32 % (12-44); MEAN CORPUSCULAR HEMOGLOBIN 29 pg (25-34); MEAN CORPUSCULAR HGB CONC 33 g/dL (32-36); MEAN CORPUSCULAR VOLUME 87 fL (80-99); MONOCYTES # (AUTO) 0.5 10^3/uL (0.0-1.0); MONOCYTES % (AUTO) 22 % (0-12); NEUTROPHILS # (AUTO) 0.9 10^3/uL (1.8-7.8); NEUTROPHILS % (AUTO) 34 % (42-75); PLATELET COUNT 168 10^3/uL (130-400); WHITE BLOOD COUNT 2.5 10^3/uL (4.3-11.0)
[2022-08-04 11:09] LABS: BASOPHILS # (AUTO) 0.1 10^3/uL (0.0-0.1); BASOPHILS % (AUTO) 1 % (0-10); EOSINOPHILS # (AUTO) 0.3 10^3/uL (0.0-0.3); EOSINOPHILS % (AUTO) 3 % (0-10); HEMATOCRIT 41 % (35-52); HEMOGLOBIN 13.5 g/dL (11.5-16.0); LYMPHOCYTES # (AUTO) 1.2 10^3/uL (1.0-4.0); LYMPHOCYTES % (AUTO) 16 % (12-44); MEAN CORPUSCULAR HEMOGLOBIN 29 pg (25-34); MEAN CORPUSCULAR HGB CONC 33 g/dL (32-36); MEAN CORPUSCULAR VOLUME 88 fL (80-99); MEAN PLATELET VOLUME 8.7 fL (9.0-12.2); MONOCYTES # (AUTO) 0.9 10^3/uL (0.0-1.0); MONOCYTES % (AUTO) 12 % (0-12); NEUTROPHILS % (AUTO) 66 % (42-75); PLATELET COUNT 225 10^3/uL (130-400); WHITE BLOOD COUNT 7.6 10^3/uL (4.3-11.0)
[2022-08-04 11:32] LABS: ALBUMIN 3.9 GM/DL (3.2-4.5); BILIRUBIN,TOTAL 0.6 MG/DL (0.1-1.0); CALCIUM 9.5 MG/DL (8.5-10.1); CREATININE SERUM 0.84 MG/DL (0.60-1.30); POTASSIUM 3.5 MMOL/L (3.6-5.0); TOTAL PROTEIN 6.9 GM/DL (6.4-8.2)
[~2022-08-18] MED LIST changes: -NS IV 1000 ML (CANCER CTR) IV SCH; +NS IV 500 ML 500 ML IV SCH; -NS IV 500 ML 500 ML ONE
[2022-08-18 13:50] LABS: BASOPHILS # (AUTO) 0.1 10^3/uL (0.0-0.1); BASOPHILS % (AUTO) 2 % (0-10); EOSINOPHILS # (AUTO) 0.3 10^3/uL (0.0-0.3); EOSINOPHILS % (AUTO) 11 % (0-10); HEMATOCRIT 41 % (35-52); HEMOGLOBIN 13.1 g/dL (11.5-16.0); LYMPHOCYTES # (AUTO) 0.8 10^3/uL (1.0-4.0); LYMPHOCYTES % (AUTO) 30 % (12-44); MEAN CORPUSCULAR HEMOGLOBIN 28 pg (25-34); MEAN CORPUSCULAR HGB CONC 32 g/dL (32-36); MEAN CORPUSCULAR VOLUME 88 fL (80-99); MEAN PLATELET VOLUME 9.4 fL (9.0-12.2); MONOCYTES # (AUTO) 0.5 10^3/uL (0.0-1.0); MONOCYTES % (AUTO) 18 % (0-12); NEUTROPHILS % (AUTO) 39 % (42-75); PLATELET COUNT 154 10^3/uL (130-400); WHITE BLOOD COUNT 2.6 10^3/uL (4.3-11.0)
[2022-08-18 14:16] LABS: ALBUMIN 3.9 GM/DL (3.2-4.5); BILIRUBIN,TOTAL 1.2 MG/DL (0.1-1.0); CALCIUM 9.8 MG/DL (8.5-10.1); CREATININE SERUM 1.02 MG/DL (0.60-1.30); POTASSIUM 3.8 MMOL/L (3.6-5.0); TOTAL PROTEIN 6.8 GM/DL (6.4-8.2)
== END | disposition home or self-care (01) ==
LOC: ONC 07-28 12:04
PROVIDERS: ATTEND Internal Medicine Hematology & Oncology
DX: Z51.11 Encounter for antineoplastic chemotherapy (principal); C50.912 Malignant neoplasm of unspecified site of left female breast; I10 Essential (primary) hypertension; E78.5 Hyperlipidemia, unspecified; E11.9 Type 2 diabetes mellitus without complications; E66.9 Obesity, unspecified
CPT/HCPCS: 36415; 36591; 80053; 85025; 96375; 96411; 96413

== ENCOUNTER 2022-09-15 13:00 | Outpatient (RCR) | payer MEDICARE, OTHER ==
[2022-08-25 13:19] LABS: BASOPHILS # (AUTO) 0.1 10^3/uL (0.0-0.1); BASOPHILS % (AUTO) 1 % (0-10); EOSINOPHILS # (AUTO) 0.3 10^3/uL (0.0-0.3); EOSINOPHILS % (AUTO) 5 % (0-10); HEMATOCRIT 40 % (35-52); HEMOGLOBIN 13.1 g/dL (11.5-16.0); LYMPHOCYTES # (AUTO) 1.1 10^3/uL (1.0-4.0); LYMPHOCYTES % (AUTO) 19 % (12-44); MEAN CORPUSCULAR HEMOGLOBIN 29 pg (25-34); MEAN CORPUSCULAR HGB CONC 33 g/dL (32-36); MEAN CORPUSCULAR VOLUME 87 fL (80-99); MEAN PLATELET VOLUME 8.8 fL (9.0-12.2); MONOCYTES # (AUTO) 0.8 10^3/uL (0.0-1.0); MONOCYTES % (AUTO) 13 % (0-12); NEUTROPHILS # (AUTO) 3.6 10^3/uL (1.8-7.8); NEUTROPHILS % (AUTO) 60 % (42-75); PLATELET COUNT 218 10^3/uL (130-400)
[2022-08-25 13:52] LABS: ALBUMIN 3.9 GM/DL (3.2-4.5); BILIRUBIN,TOTAL 0.7 MG/DL (0.1-1.0); CALCIUM 9.7 MG/DL (8.5-10.1); CREATININE SERUM 0.8 MG/DL (0.60-1.30); POTASSIUM 3.4 MMOL/L (3.6-5.0); TOTAL PROTEIN 6.7 GM/DL (6.4-8.2)
[2022-09-02 14:23] LABS: BASOPHILS % (AUTO) 1 % (0-10); EOSINOPHILS # (AUTO) 0.2 10^3/uL (0.0-0.3); EOSINOPHILS % (AUTO) 4 % (0-10); HEMATOCRIT 39 % (35-52); HEMOGLOBIN 12.9 g/dL (11.5-16.0); LYMPHOCYTES # (AUTO) 0.5 10^3/uL (1.0-4.0); LYMPHOCYTES % (AUTO) 11 % (12-44); MEAN CORPUSCULAR HEMOGLOBIN 29 pg (25-34); MEAN CORPUSCULAR HGB CONC 33 g/dL (32-36); MEAN CORPUSCULAR VOLUME 87 fL (80-99); MEAN PLATELET VOLUME 8.6 fL (9.0-12.2); MONOCYTES # (AUTO) 0.1 10^3/uL (0.0-1.0); MONOCYTES % (AUTO) 3 % (0-12); NEUTROPHILS # (AUTO) 3.6 10^3/uL (1.8-7.8); NEUTROPHILS % (AUTO) 82 % (42-75); PLATELET COUNT 136 10^3/uL (130-400); WHITE BLOOD COUNT 4.4 10^3/uL (4.3-11.0)
[2022-09-02 14:42] LABS: BILIRUBIN,TOTAL 0.9 MG/DL (0.1-1.0); CALCIUM 9.7 MG/DL (8.5-10.1); CREATININE SERUM 0.82 MG/DL (0.60-1.30); POTASSIUM 3.2 MMOL/L (3.6-5.0); TOTAL PROTEIN 7.1 GM/DL (6.4-8.2)
[2022-09-15 13:29] LABS: BASOPHILS # (AUTO) 0.1 10^3/uL (0.0-0.1); BASOPHILS % (AUTO) 1 % (0-10); EOSINOPHILS # (AUTO) 0.2 10^3/uL (0.0-0.3); EOSINOPHILS % (AUTO) 4 % (0-10); HEMATOCRIT 39 % (35-52); HEMOGLOBIN 12.5 g/dL (11.5-16.0); LYMPHOCYTES # (AUTO) 1.1 10^3/uL (1.0-4.0); LYMPHOCYTES % (AUTO) 21 % (12-44); MEAN CORPUSCULAR HEMOGLOBIN 29 pg (25-34); MEAN CORPUSCULAR HGB CONC 32 g/dL (32-36); MEAN CORPUSCULAR VOLUME 89 fL (80-99); MEAN PLATELET VOLUME 9.1 fL (9.0-12.2); MONOCYTES # (AUTO) 0.7 10^3/uL (0.0-1.0); MONOCYTES % (AUTO) 13 % (0-12); NEUTROPHILS # (AUTO) 3.2 10^3/uL (1.8-7.8); NEUTROPHILS % (AUTO) 58 % (42-75); PLATELET COUNT 223 10^3/uL (130-400); WHITE BLOOD COUNT 5.5 10^3/uL (4.3-11.0)
[2022-09-15 13:47] LABS: ALBUMIN 3.9 GM/DL (3.2-4.5); BILIRUBIN,TOTAL 0.7 MG/DL (0.1-1.0); CALCIUM 9.6 MG/DL (8.5-10.1); CREATININE SERUM 1.02 MG/DL (0.60-1.30); POTASSIUM 3.5 MMOL/L (3.6-5.0); TOTAL PROTEIN 6.8 GM/DL (6.4-8.2)
== END 2022-09-18 | disposition home or self-care (01) ==
LOC: ONC 13:00
PROVIDERS: ATTEND Internal Medicine Hematology & Oncology
DX: Z51.11 Encounter for antineoplastic chemotherapy (principal); Z45.2 Encounter for adjustment and management of vascular access device; C50.912 Malignant neoplasm of unspecified site of left female breast; I10 Essential (primary) hypertension; E78.5 Hyperlipidemia, unspecified; E11.9 Type 2 diabetes mellitus without complications; E66.9 Obesity, unspecified
CPT/HCPCS: 80053; 85025; 96375; 96411; 96413; G0463; 36415; 36591

== ENCOUNTER 2022-10-06 12:48 | Outpatient (RCR) | payer MEDICARE, OTHER ==
[2022-09-30 14:04] LABS: BASOPHILS # (AUTO) 0.1 10^3/uL (0.0-0.1); BASOPHILS % (AUTO) 2 % (0-10); EOSINOPHILS # (AUTO) 0.2 10^3/uL (0.0-0.3); EOSINOPHILS % (AUTO) 8 % (0-10); HEMATOCRIT 39 % (35-52); HEMOGLOBIN 12.7 g/dL (11.5-16.0); LYMPHOCYTES # (AUTO) 0.8 10^3/uL (1.0-4.0); LYMPHOCYTES % (AUTO) 32 % (12-44); MEAN CORPUSCULAR HEMOGLOBIN 29 pg (25-34); MEAN CORPUSCULAR HGB CONC 33 g/dL (32-36); MEAN CORPUSCULAR VOLUME 87 fL (80-99); MEAN PLATELET VOLUME 8.9 fL (9.0-12.2); MONOCYTES # (AUTO) 0.6 10^3/uL (0.0-1.0); MONOCYTES % (AUTO) 26 % (0-12); NEUTROPHILS # (AUTO) 0.3 10^3/uL (1.8-7.8); NEUTROPHILS % (AUTO) 14 % (42-75); PLATELET COUNT 182 10^3/uL (130-400); WHITE BLOOD COUNT 2.4 10^3/uL (4.3-11.0)
[2022-10-06 13:44] LABS: BASOPHILS # (AUTO) 0.1 10^3/uL (0.0-0.1); BASOPHILS % (AUTO) 1 % (0-10); EOSINOPHILS # (AUTO) 0.2 10^3/uL (0.0-0.3); EOSINOPHILS % (AUTO) 2 % (0-10); HEMATOCRIT 40 % (35-52); HEMOGLOBIN 12.8 g/dL (11.5-16.0); LYMPHOCYTES # (AUTO) 1.2 10^3/uL (1.0-4.0); LYMPHOCYTES % (AUTO) 13 % (12-44); MEAN CORPUSCULAR HEMOGLOBIN 29 pg (25-34); MEAN CORPUSCULAR HGB CONC 32 g/dL (32-36); MEAN CORPUSCULAR VOLUME 88 fL (80-99); MEAN PLATELET VOLUME 8.7 fL (9.0-12.2); MONOCYTES # (AUTO) 1.1 10^3/uL (0.0-1.0); MONOCYTES % (AUTO) 12 % (0-12); NEUTROPHILS # (AUTO) 6.3 10^3/uL (1.8-7.8); NEUTROPHILS % (AUTO) 67 % (42-75); PLATELET COUNT 190 10^3/uL (130-400); WHITE BLOOD COUNT 9.4 10^3/uL (4.3-11.0)
[2022-10-06 15:10] LABS: ALBUMIN 3.8 GM/DL (3.2-4.5); BILIRUBIN,TOTAL 0.7 MG/DL (0.1-1.0); CALCIUM 9.5 MG/DL (8.5-10.1); CREATININE SERUM 0.93 MG/DL (0.60-1.30); TOTAL PROTEIN 6.7 GM/DL (6.4-8.2)
== END 2022-10-19 | disposition home or self-care (01) ==
LOC: ONC 12:48
PROVIDERS: ATTEND Internal Medicine Hematology & Oncology
DX: Z51.11 Encounter for antineoplastic chemotherapy (principal); Z45.2 Encounter for adjustment and management of vascular access device; C50.912 Malignant neoplasm of unspecified site of left female breast; I10 Essential (primary) hypertension; E78.5 Hyperlipidemia, unspecified; E11.9 Type 2 diabetes mellitus without complications; E66.9 Obesity, unspecified
CPT/HCPCS: 36415; 36591; 80053; 85025; 96375; 96411; 96413

== ENCOUNTER 2022-10-26 12:56 | Outpatient (RCR) | payer MEDICARE, OTHER ==
[2022-10-26 13:23] LABS: BASOPHILS # (AUTO) 0.1 10^3/uL (0.0-0.1); BASOPHILS % (AUTO) 1 % (0-10); EOSINOPHILS # (AUTO) 0.3 10^3/uL (0.0-0.3); EOSINOPHILS % (AUTO) 6 % (0-10); HEMATOCRIT 39 % (35-52); HEMOGLOBIN 12.6 g/dL (11.5-16.0); LYMPHOCYTES # (AUTO) 0.9 10^3/uL (1.0-4.0); LYMPHOCYTES % (AUTO) 20 % (12-44); MEAN CORPUSCULAR HEMOGLOBIN 29 pg (25-34); MEAN CORPUSCULAR HGB CONC 32 g/dL (32-36); MEAN CORPUSCULAR VOLUME 88 fL (80-99); MEAN PLATELET VOLUME 8.5 fL (9.0-12.2); MONOCYTES # (AUTO) 0.6 10^3/uL (0.0-1.0); MONOCYTES % (AUTO) 14 % (0-12); NEUTROPHILS # (AUTO) 2.7 10^3/uL (1.8-7.8); NEUTROPHILS % (AUTO) 57 % (42-75); PLATELET COUNT 189 10^3/uL (130-400); WHITE BLOOD COUNT 4.7 10^3/uL (4.3-11.0)
[2022-10-26 13:45] LABS: ALBUMIN 3.8 GM/DL (3.2-4.5); BILIRUBIN,TOTAL 0.9 MG/DL (0.1-1.0); CALCIUM 9.8 MG/DL (8.5-10.1); CREATININE SERUM 0.91 MG/DL (0.60-1.30); POTASSIUM 3.6 MMOL/L (3.6-5.0); TOTAL PROTEIN 6.9 GM/DL (6.4-8.2)
== END 2022-11-16 | disposition home or self-care (01) ==
LOC: ONC 12:56
PROVIDERS: ATTEND Internal Medicine Hematology & Oncology
DX: Z51.11 Encounter for antineoplastic chemotherapy (principal); Z45.2 Encounter for adjustment and management of vascular access device; C50.912 Malignant neoplasm of unspecified site of left female breast; I10 Essential (primary) hypertension; E78.5 Hyperlipidemia, unspecified; E11.9 Type 2 diabetes mellitus without complications; E66.9 Obesity, unspecified
CPT/HCPCS: 36591; 80053; 85025; 96375; 96411; 96413

== ENCOUNTER → 2022-12-07 | Outpatient (CLI) | payer MEDICARE, OTHER ==
[~2022-12-07] MED LIST changes: -CYCLOPHOSPHAMIDE IV SCH; -HEParin (CENTRAL IV FLUSH) 500 UNIT/5 ML SYR IV PRN; -METHOTREXATE IJ SCH; -NS IV 500 ML 500 ML IV SCH; -NS IV SCH; -PALONOSETRON HCL 0.25 MG, dexAMETHasone INJECTION 10 MG in NS (IVPB) 50 ML IV SCH
--- NOTE | 2022-12-07 13:06 | Diagnostic Imaging Report ---
INDICATION: Postmenopausal screening COMPARISON: Baseline FINDINGS: AP Spine L1-L4: [BMD (g/cm2): 1.215] [T-Score: 0.1] [Z-Score: 1.4] [BMD Previous: NA] [BMD % Change: NA] LT Hip Neck: [BMD (g/cm2): 0.928] [T-Score: -0.8] [Z-Score: 0.8] LT Hip Total: [BMD (g/cm2):1.006] [T-Score:0.0] [Z-Score: 1.4] [BMD Previous: NA] [BMD % Change: NA] RT Hip Neck: [BMD (g/cm2):0.854] [T-Score:-1.3] [Z-Score:0.3] RT Hip Total: [BMD (g/cm2):0.922] [T-score:-0.7] [Z-Score:0.7] [BMD Previous:NA] [BMD % Change:NA] *Indicates significant change from prior examination based on 95% confidence level. World Health Organization criteria for BMD interpretation classify patients as Normal (T-score at or above -1.0), Osteopenic (T-score between -1.0 and -2.5) or Osteoporotic (T-score at or below -2.5). LIMITATIONS AND MODIFICATION: None. FRACTURE RISK (FRAX SCORE): The ten year probability of (%): Major Osteoporotic Fracture: [9.7] Hip Fracture: [1.6] IMPRESSION: 1. Osteopenia (Low bone mass). 2. Baseline examination. 3. See below National Osteoporosis Foundation guidelines on when to potentially initiate pharmacologic therapy. Based on the National Osteoporosis Foundation Guidelines, pharmacologic treatment should be initiated in any of the following, unless clinical conditions suggest otherwise: * Any patient with prior fragility fracture of the hip or vertebrae. A spine fracture indicates 5X risk for subsequent spine fracture and 2X risk for subsequent hip fracture. * Osteoporosis (T-score <-2.5). * Postmenopausal women and men age 50 and older with low bone mass/osteopenia (T-score between -1.0 and -2.5) by DXA and 10-year major osteoporotic fracture greater than 20% or a 10-year probability of hip fracture greater than 3%. These fracture risks are supplied above in the FRAX score, if applicable. * Clinician judgement and/or patient preferences may indicate treatment for people with 10-year fracture probabilities above or below these levels. Dictated by: Dictated on workstation # [id number]
== END ==
LOC: RAD 11:54
PROVIDERS: ATTEND Internal Medicine Hematology & Oncology
DX: Z13.820 Encounter for screening for osteoporosis (principal); M85.80 Other specified disorders of bone density and structure, unspecified site; C50.919 Malignant neoplasm of unspecified site of unspecified female breast; Z78.0 Asymptomatic menopausal state
CPT/HCPCS: 77080

== ENCOUNTER 2022-12-15 13:59 | Outpatient (RCR) | payer MEDICARE, OTHER ==
[2022-11-17 13:40] LABS: BASOPHILS # (AUTO) 0.1 10^3/uL (0.0-0.1); BASOPHILS % (AUTO) 1 % (0-10); EOSINOPHILS # (AUTO) 0.3 10^3/uL (0.0-0.3); EOSINOPHILS % (AUTO) 4 % (0-10); HEMATOCRIT 36 % (35-52); HEMOGLOBIN 11.8 g/dL (11.5-16.0); LYMPHOCYTES # (AUTO) 0.8 10^3/uL (1.0-4.0); LYMPHOCYTES % (AUTO) 11 % (12-44); MEAN CORPUSCULAR HEMOGLOBIN 29 pg (25-34); MEAN CORPUSCULAR HGB CONC 33 g/dL (32-36); MEAN CORPUSCULAR VOLUME 88 fL (80-99); MEAN PLATELET VOLUME 9.3 fL (9.0-12.2); MONOCYTES # (AUTO) 0.9 10^3/uL (0.0-1.0); MONOCYTES % (AUTO) 12 % (0-12); NEUTROPHILS # (AUTO) 5.2 10^3/uL (1.8-7.8); NEUTROPHILS % (AUTO) 71 % (42-75); PLATELET COUNT 193 10^3/uL (130-400); WHITE BLOOD COUNT 7.4 10^3/uL (4.3-11.0)
[2022-11-17 14:02] LABS: ALBUMIN 3.7 GM/DL (3.2-4.5); BILIRUBIN,TOTAL 0.8 MG/DL (0.1-1.0); CALCIUM 9.8 MG/DL (8.5-10.1); CREATININE SERUM 0.83 MG/DL (0.60-1.30); POTASSIUM 3.7 MMOL/L (3.6-5.0); TOTAL PROTEIN 6.9 GM/DL (6.4-8.2)
[~2022-12-15 13:59] MED LIST changes: +CYCLOPHOSPHAMIDE IV SCH; +HEParin (CENTRAL IV FLUSH) 500 UNIT/5 ML SYR IV PRN; +METHOTREXATE IJ SCH; +NS IV 500 ML 500 ML IV SCH; +NS IV SCH; +PALONOSETRON HCL 0.25 MG, dexAMETHasone INJECTION 10 MG in NS (IVPB) 50 ML IV SCH
== END 2022-12-17 | disposition home or self-care (01) ==
LOC: ONC 13:59
PROVIDERS: ATTEND Internal Medicine Hematology & Oncology
DX: Z51.0 Encounter for antineoplastic radiation therapy (principal); C50.912 Malignant neoplasm of unspecified site of left female breast; I10 Essential (primary) hypertension; E78.5 Hyperlipidemia, unspecified; E11.9 Type 2 diabetes mellitus without complications; E66.9 Obesity, unspecified
CPT/HCPCS: 77290; 77295; 77300; 77334; 77470; 80053; 85025; 99205

== ENCOUNTER 2023-01-14 14:33 | Outpatient (RCR) | payer MEDICARE, OTHER ==
[~2023-01-14 14:33] MED LIST changes: -CYCLOPHOSPHAMIDE IV SCH; -HEParin (CENTRAL IV FLUSH) 500 UNIT/5 ML SYR IV PRN; -METHOTREXATE IJ SCH; -NS IV 500 ML 500 ML IV SCH; -NS IV SCH; -PALONOSETRON HCL 0.25 MG, dexAMETHasone INJECTION 10 MG in NS (IVPB) 50 ML IV SCH
== END 2023-01-16 | disposition home or self-care (01) ==
LOC: ONC 14:33
PROVIDERS: ATTEND Internal Medicine Hematology & Oncology
DX: C50.912 Malignant neoplasm of unspecified site of left female breast (principal); I10 Essential (primary) hypertension; E78.5 Hyperlipidemia, unspecified; E11.9 Type 2 diabetes mellitus without complications; E66.9 Obesity, unspecified
CPT/HCPCS: 77280; 77307; 77334; 77336; 77417

== ENCOUNTER 2023-01-19 15:29 | Outpatient (RCR) | payer MEDICARE, OTHER | END 2023-02-16 | disposition home or self-care (01) | LOC: ONC 15:29 | PROVIDERS: ATTEND Internal Medicine Hematology & Oncology | DX: Z51.0 Encounter for antineoplastic radiation therapy (principal); C50.912 Malignant neoplasm of unspecified site of left female breast; I10 Essential (primary) hypertension; E78.5 Hyperlipidemia, unspecified; E11.9 Type 2 diabetes mellitus without complications; E66.9 Obesity, unspecified | CPT/HCPCS: 77336 ==

== ENCOUNTER 2023-04-26 14:51 | Outpatient (RCR) | payer MEDICARE, OTHER ==
[2023-04-26 15:52] LABS: BASOPHILS % (AUTO) 0 % (0-10); EOSINOPHILS # (AUTO) 0.2 10^3/uL (0.0-0.3); EOSINOPHILS % (AUTO) 3 % (0-10); HEMATOCRIT 45 % (35-52); HEMOGLOBIN 14.2 g/dL (11.5-16.0); LYMPHOCYTES # (AUTO) 1.4 X 10^3 (1.0-4.0); LYMPHOCYTES % (AUTO) 21 % (12-44); MEAN CORPUSCULAR HEMOGLOBIN 28 pg (25-34); MEAN CORPUSCULAR HGB CONC 32 g/dL (32-36); MEAN CORPUSCULAR VOLUME 88 fL (80-99); MEAN PLATELET VOLUME 8.6 fL (9.0-12.2); MONOCYTES # (AUTO) 0.5 X 10^3 (0.0-1.0); MONOCYTES % (AUTO) 8 % (0-12); NEUTROPHILS # (AUTO) 4.4 X 10^3 (1.8-7.8); NEUTROPHILS % (AUTO) 68 % (42-75); PLATELET COUNT 175 10^3/uL (130-400); WHITE BLOOD COUNT 6.5 10^3/uL (4.3-11.0)
[2023-04-26 16:10] LABS: ALBUMIN 4.1 GM/DL (3.2-4.5)
[2023-04-26 16:11] LABS: POTASSIUM 4.1 MMOL/L (3.6-5.0)
[2023-04-26 16:12] LABS: CALCIUM 10.5 MG/DL (8.5-10.1)
[2023-04-26 16:13] LABS: TOTAL PROTEIN 7.5 GM/DL (6.4-8.2)
[2023-04-26 16:15] LABS: BILIRUBIN,TOTAL 1.2 MG/DL (0.1-1.0)
[2023-04-26 16:17] LABS: CREATININE SERUM 0.86 MG/DL (0.60-1.30)
== END 2023-05-19 | disposition home or self-care (01) ==
LOC: ONC 14:51
PROVIDERS: ATTEND Internal Medicine Hematology & Oncology
DX: C50.912 Malignant neoplasm of unspecified site of left female breast (principal); I10 Essential (primary) hypertension; E78.5 Hyperlipidemia, unspecified; E11.9 Type 2 diabetes mellitus without complications; E66.9 Obesity, unspecified
CPT/HCPCS: 80053; 85025; G0463; 36415; 99214

== ENCOUNTER 2023-08-02 15:02 | Outpatient (RCR) | payer MEDICARE, OTHER | END 2023-08-18 | disposition home or self-care (01) | LOC: ONC 15:02 | PROVIDERS: ATTEND Internal Medicine Hematology & Oncology | DX: Z45.2 Encounter for adjustment and management of vascular access device (principal); C50.912 Malignant neoplasm of unspecified site of left female breast; I10 Essential (primary) hypertension; E78.5 Hyperlipidemia, unspecified; E11.9 Type 2 diabetes mellitus without complications; E66.9 Obesity, unspecified | CPT/HCPCS: 96523; G0463; 99214 ==